=== PATIENT | female | born 1965 | race African-American/Black ===

== ENCOUNTER 2016-10-18 07:00 | Inpatient (IN) | payer OTHER ==
[~2016-10-18] VITALS: Ht 160 cm; Wt 122.0 kg
[2016-12-26] MEDS ORDERED: NORCO 10-325 T1 EACH ORAL (14:56)
[2016-12-27] VITALS (12 sets, daily range): BP systolic 128–142; BP diastolic 66–84
[2016-12-27] MEDS ORDERED: LR 1000ml 1,000 ML IVLG SCH (06:17)
[2016-12-27] MEDS ORDERED: Metoclopramide 10mg/2ml Inj IVP PRN (06:30)
[2016-12-27] MEDS ORDERED: oxyCODONE HCL/Acetaminophen 5/325mg ORAL PRN (06:30)
[2016-12-27] MEDS ORDERED: Ketorolac 60mg Inj IM PRN (06:30)
[2016-12-27] MEDS ORDERED: LORazepam Inj 2mg/ml 1ml IV PRN (06:30)
[2016-12-27] MEDS ORDERED: Acetaminophen (Non formulary) 100 ML IV ONE (06:30)
[2016-12-27] MEDS ORDERED: Hydromorphone 0.5mg/0.5ml inj IVP PRN (06:30)
[2016-12-27] MEDS ORDERED: Atropine Inj 1mg/10ml Syr IV PRN (06:30)
[2016-12-27] MEDS ORDERED: fentaNYL 100 mcg/2 mL IV PRN (06:30)
[2016-12-27] MEDS ORDERED: Norco 5mg/325mg tab ORAL PRN (06:30)
[2016-12-27] MEDS ORDERED: Midazolam 2mg/2ml Inj IVP PRN (06:30)
[2016-12-27] MEDS ORDERED: DiphenhydrAMINE 50mg/ml Inj IVP PRN (06:30)
[2016-12-27] MEDS ORDERED: Ketorolac 30mg Inj IV PRN (06:30)
[2016-12-27] MEDS ORDERED: Norco 7.5mg/325mg tab ORAL PRN (06:30)
--- NOTE | 2016-12-27 06:33 | Anethesia Preoperative Eval ---
Anesthesia Pre-op PMH/ROS General Date of Evaluation: Dec 27, 2016 Time of Evaluation: 07:11 Anesthesiologist: Deion ASA Score: ASA 3 Mallampati Score Class I : Soft palate, uvula, fauces, pillars visible Class II: Soft palate, uvula, fauces visible Class III: Soft palate, base of uvula visible Class IV: Only hard plate visible Mallampati Classification: Class III Surgeon: Mikey Diagnosis: Neck Pain Surgical Procedure: ACDF C4-5, C5-6, C6-7 Anesthesia History: none Family History: no anesthesia problems Allergies: Coded Allergies: No Known Allergies (Unverified , 12/26/16) Medications: see eMAR Past Medical History Cardiovascular: Reports: HTN Other: obesity - BMI 50 Morbid Obesity Anesthesia Pre-op Phys. Exam Physician Exam Last Vital Signs Date Time Temp Pulse Resp B/P (MAP) Pulse Ox O2 Delivery O2 Flow Rate FiO2 12/27/16 05:50 97.4 63 18 142/66 99 Room Air Constitutional: NAD Neurologic: CN 2-12 intact Cardiovascular: RRR Respiratory: CTA Gastrointestinal: S/NT/ND Airway Exam Mallampati Score: Class III MO: limited ROM: limited Teeth: intact Anesthesia Pre-op A/P Risk Assessment & Plan Assessment: ASA 3 Plan: GA, BIS, Glidescope Status Change Before Surgery: No Pre-Antibiotics Dru Grams Ancef IV Given Within 1 Hr of Incision: Yes Time Given: 07:31 Romaine Albarran MD Dec 27, 2016 06:33
--- NOTE | 2016-12-27 06:38 | Immediate Post-Op Evaluation ---
Immediate Post-Op Evalulation Immediate Post-Op Evalulation Procedure: ACDF C4-5, C5-6, C6-7 Date of Evaluation: Dec 27, 2016 Time of Evaluation: 11:25 IV Fluids: 800 LR Blood Products: 0 Estimated Blood Loss: 50 Urinary Output: 0 Blood Pressure Systolic: 137 Blood Pressure Diastolic: 83 Pulse Rate: 93 Respiratory Rate: 16 O2 Sat by Pulse Oximetry: 97 Temperature (Fahrenheit): 98.4 Pain Score (1-10): 3 Nausea: No Vomiting: No Complications 0 Patient Status: awake, reacts, patent, extubated, none Hydration Status: adequate Dru Grams Ancef IV Given Within 1 Hr of Incision: Yes Time Given: 07:31 Romaine Albarran MD Dec 27, 2016 06:38
[2016-12-27] MEDS ORDERED: Vancomycin 1gm inj IVPB ONE (06:43)
[2016-12-27] MEDS ORDERED: Bacitracin 50000 Units Vial ONE (06:43)
[2016-12-27] MEDS ORDERED: Lidocaine 1% 10mg/ml/Epi 0.005mg/ml 30ml vial INJ ONE (06:43)
[2016-12-27] MEDS ORDERED: Surgicel 4in x 8in TOPIC ONE (06:43)
[2016-12-27] MEDS ORDERED: Thrombin 5000 units TOPIC ONE ×2 (06:43→12:01)
[2016-12-27] MEDS ORDERED: Metoprolol 5mg/5ml Inj ONE (07:00)
[2016-12-27] MEDS ORDERED: ceFAZolin 1gm/50ml Premix 50 ML IV ONE (07:00)
[2016-12-27] MEDS ORDERED: LR 1000ml ONE (07:00)
[2016-12-27] MEDS ORDERED: Glycopyrrolate 0.2mg/ml 1ml Vial ONE (07:00)
[2016-12-27] MEDS ORDERED: NS Irrig 1000ml ONE (07:00)
[2016-12-27] MEDS ORDERED: Dexamethasone 4mg/ml vial ONE (07:00)
[2016-12-27] MEDS ORDERED: Lidocaine 1% MPF 10mg/ml 5ml ONE (07:00)
[2016-12-27] MEDS ORDERED: Zemuron 50mg/5ml Inj IV ONE (07:00)
[2016-12-27] MEDS ORDERED: fentaNYL 100 mcg/2 mL IV ONE (07:00)
[2016-12-27] MEDS ORDERED: Propofol 1,000mg/ 100ml btl IV ONE (07:00)
[2016-12-27] MEDS ORDERED: Lidocaine 1% Plain 30 ml INJ ONE (07:00)
[2016-12-27] MEDS ORDERED: Labetalol 5mg/ml 20ml vial IV ONE (07:00)
[2016-12-27] MEDS ORDERED: Sterile Water Irrig 1000ml IRRIG ONE (07:00)
[2016-12-27] MEDS ORDERED: Dexamethasone 20mg/5ml IVP ONE (07:00)
[2016-12-27] MEDS ORDERED: Neostigmine 1mg/ml 10ml Inj ONE (07:00)
--- NOTE | 2016-12-27 07:39 | Pre-Procedure Note/Attestation ---
Pre-Procedure Note/Attestation Complete Prior to Procedure Planned Procedure: not applicable Procedure Narrative: ADR possible ACDF C4-5, C5-6 ACDF C6-C7 Indications for Procedure Pre-Operative Diagnosis: Post trauma neck pain Attestation I attest that I discussed the nature of the procedure; its benefits; risks and complications; and alternatives (and the risks and benefits of such alternatives ), prior to the procedure, with the patient (or the patient's legal junior sales representative). I attest that, if there was a reasonable possibility of needing a blood transfusion, the patient (or the patient's legal junior sales representative) was given the [facility] standardized written summary, pursuant to the Joshua Vinay Blood Safety Act ([place] Health and Safety Code # 1645, as amended). I attest that I re-evaluated the patient just prior to the surgery and that there has been no change in the patient's H&P, except as documented below: MIKE WOODARD Dec 27, 2016 07:39
[2016-12-27] MEDS ORDERED: Tylenol #3 tab (300mg/30mg) ORAL PRN (10:00)
[2016-12-27] MEDS ORDERED: oxyCODONE 5mg IR tab ORAL PRN ×2 (10:00)
[2016-12-27] MEDS ORDERED: Albuterol ud Inhalation HHN PRN (10:00)
[2016-12-27] MEDS ORDERED: traMADol 50mg tab ORAL PRN (10:00)
[2016-12-27] MEDS ORDERED: PCA HYDROmorphone 1mg/ml 30 ML IV PRN ×2 (10:00→12:30)
[2016-12-27] MEDS ORDERED: Norco 10mg/325mg tab ORAL PRN (10:00)
[2016-12-27] MEDS ORDERED: Chloraseptic Spray 20mL Bottle ORAL PRN (10:00)
--- NOTE | 2016-12-27 11:15 | Brief Operative Note ---
Immediate Post Operative Note Operative Note Pre-op Diagnosis: Post trauma neck pain Procedure: Hemivertebrectomy C4, C5, C6, C7 Interbody reconstruction Titanium Fusion Anterior internal fixation SSEP High Power Body Habitus Osteopromotive material Post-op Diagnosis: same as pre-op Findings: consistent w/pre-op dx studies Surgeon: Mikey Driller Operator: Britt RESENDIZ Anesthesiologist: Deion FORD Anesthesia: general Specimen: none Complications: none Condition: stable Fluids: anesthesia Estimated Blood Loss: minimal Drains: none Implant(s) used?: Yes MIKE WOODARD Dec 27, 2016 11:15
[2016-12-27] MEDS ORDERED: Naloxone 0.4mg/ml Inj IVP PRN ×2 (11:30→11:45)
--- NOTE | 2016-12-27 11:53 | Diagnostic Imaging Report ---
Indication: PAIN left upper extremity pain Technique: Digital intraoperative images Comparison: None Findings: Initial localizer image demonstrates a surgical tool projecting at level of the C4-5 disc. Subsequent images document anterior fusion of C4-C7 with placement of disc spacers. Impression: Intraoperative imaging, as described
[2016-12-27] MEDS ORDERED: PCA HYDROmorphone 30mg/30ml Syr IV PRN (12:15)
[2016-12-27] MEDS ORDERED: Rate Change PCA 1 Each MISC PRN (12:30)
[2016-12-27] MEDS ORDERED: PCA Education Pamphlet MISC ONE (14:00)
[2016-12-27] MEDS: D5 1/2NS 1,000 ML IV SCH ×2 (16:32→21:12)
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
[2016-12-27] MEDS ORDERED: HYDROmorphone 1mg/ml Carpuject SUBQ PRN ×2 (17:15)
[2016-12-27] MEDS ORDERED: Milk of Magnesia 30ml Ud ORAL PRN (17:30)
[2016-12-27] MEDS ORDERED: PCA shift volume MISC SCH (19:00)
[2016-12-27] MEDS: PCA shift volume MISC SCH (19:19)
--- NOTE | 2016-12-27 21:15 | Operative Note - Dictated ---
DATE OF OPERATION: 12/27/2016 SURGEON: Zbigniew Jensen, Ph.D., M.D. DIRECTOR TELEHEALTH: ASTRID Dubon. ANESTHESIOLOGIST: Romaine Albarran M.D. ANESTHESIA: General with intubation. ESTIMATED BLOOD LOSS: Minimal. COMPLICATIONS: None. POSTOPERATIVE CONDITION: Good/stable. ADMITTING/PREOPERATIVE DIAGNOSIS: Preoperative discogenic neck pain. POSTOPERATIVE DIAGNOSIS: Preoperative discogenic neck pain. OPERATIVE PROCEDURES: 1. Hemivertebrectomy, anterior, C4-C5 and C6-C7. 2. Decompression of spinal cord, nerve roots. 3. Interbody reconstruction, fusion. 4. Osteopromotive material placed, titanium interbody cage grafts at C4-C5, C5-C6, C6-C7. 5. Anterior internal fixation, bilateral, C4-C5 and C6-C7. 6. SSEP monitoring. 7. The patient's body habitus is greater than 95th percentile for height, relevant intraoperative observation, osteophyte formation C4-C5 and C6-C7 precluding artificial disk placement. 8. Correct deformity with lordotic cage containing osteopromotive material. PROCEDURE IN DETAIL: The patient was brought to the operating room and in supine position, general anesthesia with intubation was induced. IV antibiotics and IV Decadron were administered prior to incision time. Anterior cervical spine was sterilely prepped and draped free in usual sterile fashion. A longitudinal incision on left paralleling the medial aspect of the sternocleidomastoid was longitudinally placed over the appropriate intervals. Sharp dissection through dermis and epidermis. Extensive electrocautery dissection through subcutaneous tissue to the level of the platysma muscle. The platysma muscle isolated and transected in line with the incision. Blunt dissection carried sequentially through the deep cervical and pretracheal fascia to the midline between the right and left longus colli muscles. Spinal needle placed - bent at 90-degree angle so as to avoid penetration greater than 3 mm in disk space. A cross-table image obtained under sterile conditions demonstrating the correct level for further dissection. Level was marked. Subperiosteal dissection of longus colli muscles over the appropriate intervals followed with retractor placement. C4-C5: Asymmetric right anterior osteophyte resected. Severe collapse noted. Deemed inadequate for artificial disk replacement. Hemivertebrectomy of inferior C4 and superior C5 to but not through the posterior longitudinal ligament. Posterior longitudinal ligament resected, osteophytes resected, and decompression. No dural tears or leaks anytime during the procedure. SSEP monitoring stable. Interpositional grafting appropriately dimensioned. Titanium interbody graft containing the osteopromotive material. Countersunk 2 mm in the disk space. The patient was stable at all times. Of note is that retraction pins were utilized at this interval to gain access due to the severe collapse. Retraction pins removed. Holes plugged with sterile wax. Attention turned to the C6-C7 interval. A large anterior osteophyte resected with [place] bur dissection. Severe collapse noted. Hemivertebrectomy as noted at inferior C6 and superior C7. Posterior longitudinal ligament resected. Interpositional grafting with the appropriately dimensioned titanium lordotic cage. Countersunk 2 mm. Stable at all times. No dural tears or leaks noted anytime with resection of the posterior longitudinal ligament. Attention was turned to C5-C6 interval. Retractors were placed at this interval. Anterior osteophyte excised with [place] bur dissection under high-power magnification followed with hemivertebrectomy at inferior C5 and superior C6 to the posterior longitudinal ligament. Ligament resected under high-power magnification. No dural tears or leaks occurred anytime during the procedure. SSEP monitoring stable at all times. Decompression. Interpositional grafting with the appropriately dimensioned titanium graft containing osteopromotive material. Countersunk 2 mm. All traction on the neck opened (10 pounds) was removed. Anterior internal plate fixation was undertaken in compressive mode extending from C4 to C7 vertebral body with bilateral screws at C4-C5 and C6-C7. Bicortical screws placed appropriately. The patient was stable at all times. Alignment excellent with fluoroscopic guidance. Wound irrigated with antibiotic-containing saline. Bleeding bone cauterized with application of sterile FloSeal. No excoriation noted of vital structures. Reapproximation of the platysma muscle with Vicryl suture material. Subcuticular reapproximation of dermis and epidermis followed with transverse surgical strips. Sterile bandage maintained in place with tape. The patient was awakened, extubated in the operating room, and transported to postop recovery in good stable condition. Zbigniew Jensen M.D. DR: MARK JOB#: [id number] CC:
[2016-12-28] VITALS: BP 148/72
[2016-12-28 04:00] VITALS: BP 142/77
[2016-12-28] MEDS: D5 1/2NS 1,000 ML IV SCH ×2 (05:08→08:15)
[2016-12-28] MEDS: PCA shift volume MISC SCH (07:24)
[2016-12-28 08:00] VITALS: BP 138/80
[2016-12-28] MEDS: Docusate 100mg cap ORAL SCH ×2 (08:23→17:27)
[2016-12-28] MEDS ORDERED: Hydromorphone 0.5mg/0.5ml inj SUBQ PRN (11:30)
[2016-12-28 12:00] VITALS: BP 141/63
[2016-12-28] MEDS ORDERED: Norco 5mg/325mg tab ORAL ONE (13:05)
--- NOTE | 2016-12-28 13:33 | 48 Hour Post Anesthesia Eval ---
Post Anesthesia Evaluation Procedure: ACDF C4-5, C5-6, C6-7 Date of Evaluation: Dec 28, 2016 Time of Evaluation: 13:32 Blood Pressure Systolic: 146 0: 78 Pulse Rate: 72 Respiratory Rate: 22 Temperature (Fahrenheit): 97.6 O2 Sat by Pulse Oximetry: 98 Airway: patent Nausea: No Vomiting: No Pain Intensity: 3 Hydration Status: adequate Cardiopulmonary Status: stable Mental Status/LOC: patient returned to baseline Follow-up Care/Observations: n/a Post-Anesthesia Complications: none Follow-up care needed: N/A GUERA CORRAL M.D. Dec 28, 2016 13:33
--- NOTE | 2016-12-28 15:55 | Cardiology Progress Note ---
Assessment/Plan Assessment/Plan [id number] Objective Last 24 Hour Vital Signs Date Time Temp Pulse Resp B/P (MAP) Pulse Ox O2 Delivery O2 Flow Rate FiO2 12/28/16 14:06 97.6 12/28/16 13:33 72 22 98 12/28/16 12:00 97.9 64 20 141/63 97 Room Air 12/28/16 11:24 18 12/28/16 08:00 98.1 77 20 138/80 100 Nasal Cannula 3.0 12/28/16 04:00 97.6 88 19 142/77 99 Nasal Cannula 3.0 12/28/16 04:00 17 12/28/16 00:00 16 12/28/16 00:00 98.2 90 18 148/72 97 Nasal Cannula 3.0 12/27/16 20:34 97.9 104 20 137/84 98 Nasal Cannula 3.0 12/27/16 20:00 17 12/27/16 18:08 18 12/27/16 16:00 98.2 96 19 128/84 Nasal Cannula 2.0 Intake and Output 12/28/16 12/29/16 19:00 07:00 Intake Total 865 ml Balance 865 ml Intake Oral 240 ml IV Total 625 ml # Voids 1 ALANA BILLINGSLEY Dec 28, 2016 15:55
[2016-12-28 16:00] VITALS: BP_SYST 118; BP_SYST 140; BP_SYST 145; BP_DIAS 103; BP_DIAS 109; BP_DIAS 60
[2016-12-28] MEDS ORDERED: Nitroglycerin 2% oint pkt TOPIC ONE ×2 (17:00→17:15)
--- NOTE | 2016-12-28 17:15 | Progress Note ---
DATE: 12/28/2016 ACUTE PAIN MANAGEMENT PHYSICIAN PROGRESS NOTE MEDICATIONS: Medication administration record reviewed. Medications Include Colace Protonix, IV fluids, Dilaudid RIFLE CASE REPAIRER. As needed medications include Cepacol, Benadryl, Mylanta, Zofran, Bertrand, Chloraseptic spray, Fioricet, Proventil, Soma, breakthrough Dilaudid. LABORATORY STUDIES: No interval laboratory studies. PHYSICAL EXAMINATION: VITAL SIGNS: Within normal limits. Afebrile, pulse 64, respirations 20, blood pressure 141/53, oxygen saturation 97% on room air. I spent over 60 minutes in consultation today. I saw the patient at bedside with German-speaking salvage winder and inspector. The patient was able to ambulate about 30 feet with physical therapy. The patient is morbidly obese with a body mass index of 48. The last night, she was relatively bedridden due to her massive obesity and pain. She responded well to the Dilaudid RIFLE CASE REPAIRER which I ordered and I will try to wean that off early this afternoon. I have asked the nurse to dose her with oral Bertrand with her lunch. Now the patient is more ambulatory and stronger. We will continue to try to advance her ambulation. She is breathing comfortably on room air. Denies any shortness of breath. She has been noncompliant using her incentive spirometer and I have explained the extreme importance with her obesity to use the spirometer for good pulmonary toilet to avoid postoperative pneumonia and atelectasis. The patient is swallowing, breathing, and phonating within normal limits. She is tolerating a clear liquid diet for breakfast. Denies any nausea symptoms. She denies shortness of breath or chest pain. The neck dressing appears clean and dry. The patient does live at home with her . She already has a supply of Bertrand at home. I would continue her on GI ulcer prophylaxis while she is here in the hospital and also recommend continue using sequential compression pneumatic devices for DVT prophylaxis, morbidly obese woman have high risk for deep venous thrombosis and pulmonary embolism on occasion. Her current analgesic regimen seems adequate. We will see how she does off of the RIFLE CASE REPAIRER this afternoon in order to help expedite her hospital discharge. Juan Bernard M.D. DR: Allyson JOB#: [id number] CC:
[2016-12-28 18:00] VITALS: BP_SYST 118; BP_SYST 148; BP_DIAS 60; BP_DIAS 89
[2016-12-28] MEDS ORDERED: D5 1/2NS 1000ml IV ONE (19:19)
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
== END 2016-12-28 19:20 | disposition home or self-care (01) | DRG 519 ==
LOC: SDSOVERFLO 12-27 05:13 → 3E 12-27 12:59
PROC: 4A11X4G Monitoring of Peripheral Nervous Electrical Activity, Intraoperative, External Approach (ICD-10-PCS; principal; 2016-12-27 07:00)
PROC: 0PB30ZZ Excision of Cervical Vertebra, Open Approach (ICD-10-PCS; principal; 2016-12-27 07:00)
PROC: 01N10ZZ Release Cervical Nerve, Open Approach (ICD-10-PCS; principal; 2016-12-27 07:00)
PROC: 00NW0ZZ Release Cervical Spinal Cord, Open Approach (ICD-10-PCS; principal; 2016-12-27 07:00)
DX: M50.821 Other cervical disc disorders at C4-C5 level (principal); Z68.42 Body mass index [BMI] 45.0-49.9, adult; E66.01 Morbid (severe) obesity due to excess calories; G89.18 Other acute postprocedural pain
CPT/HCPCS: 72040; 76001; 87081; 94003; 94150; 94664; 94760; J2405; J2710